=== PATIENT | female | born 1960 | race Caucasian/White ===

== ENCOUNTER 2018-06-16 11:08 | Emergency (ER) | payer MEDICAID ==
[2018-06-16 11:16] VITALS: O2SAT 98
--- NOTE | 2018-06-16 12:19 | C.PDOC ---
History Of Present Illness 57 y/o female,w/PMhx of anxiety, presents to the ER requesting detox from Xanax. Patient states that she last used Xanax in the morning. She notes that she does not have her meds because the meds are locked in her father's house. Pt reports that she also drinks ETOH. Her last drink was 2 days ago.Denies having SI, HI, and physical complaints. Time Seen by Provider: 06/16/18 11:24 Chief Complaint (Nursing): Substance Abuse History Per: Patient History/Exam Limitations: no limitations Onset/Duration Of Symptoms: Days Current Symptoms Are (Timing): Still Present Severity: Moderate Past Medical History Reviewed: Historical Data, Nursing Documentation, Vital Signs Vital Signs: Last Vital Signs Temp 98.1 F 06/16/18 11:13 Pulse 72 06/16/18 11:13 Resp 16 06/16/18 11:13 BP 111/72 06/16/18 11:13 Pulse Ox 98 06/16/18 11:13 - Medical History PMH: Anxiety, Depression, Gall Bladder Disease Denies: Diabetes, Hepatitis, HIV, HTN, Hypercholesterolemia, Hyperthyroidism, Hypothyroidism, Seizures, Sexually Transmitted Disease Surgical History: Cholecystectomy (more than 10 yrs ago) - [facility] GROUP PSYCHOTHERAPY (07/29/17) INDIV PSYCHOTHERAPY FOR SUBSTANCE ABUSE TREATMENT, SUPPORT (07/29/17) INDIV PSYCHOTHERAPY FOR SUBSTANCE ABUSE, MOTIVATION ENHANCE (07/29/17) Family History: States: No Known Family Hx - Social History Hx Alcohol Use: Yes Hx Substance Use: No - Immunization History Hx Tetanus Toxoid Vaccination: No Hx Influenza Vaccination: No Hx Pneumococcal Vaccination: No Review Of Systems Constitutional: Negative for: Fever, Chills Psych: Negative for: Suicidal ideation Physical Exam - Physical Exam Appears: No Acute Distress Skin: Normal Color, Warm, Dry Head: Atraumatic, Normacephalic Eye(s): bilateral: Normal Inspection Nose: Normal Oral Mucosa: Moist Neck: Supple Chest: Symmetrical Cardiovascular: Rhythm Regular Respiratory: Normal Breath Sounds, No Rales, No Rhonchi, No Wheezing Gastrointestinal/Abdominal: Soft, No Tenderness, No Guarding, No Rebound Neurological/Psych: Oriented x3, Normal Speech, Normal Cognition ED Course And Treatment O2 Sat by Pulse Oximetry: 98 (RA) Pulse Ox Interpretation: Normal Medical Decision Making Medical Decision Making: pt for detox from xanax, not accepted by Dr Esquivel to detox. pt has no acute medical or psychiatric issues. will discharge. ceramic coater reviewed; pt has rx fro xanax filled in late Apr 2018 for one month. advised to f/u with her psychiatrist. Disposition - Disposition Disposition: HOME/ ROUTINE Disposition Time: 12:20 Condition: GOOD Additional Instructions: Please follow up with your psychiatrist to discuss xanax dosages as soon as possible as well as alternates to xanax. 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 - Scribe Statement The provider has reviewed the documentation as recorded by the Jazmine Silvestre Provider Attestation All medical record entries made by the Gilbertoibe were at my direction and personally dictated by me. I have reviewed the chart and agree that the record accurately reflects my personal performance of the history, physical exam, medical decision making, and the department course for this patient. I have also personally directed, reviewed, and agree with the discharge instructions and disposition.
[2018-06-16 12:31] VITALS: BP 113/73; PULSE 90; RESP 20; TEMP 97.5
== END 2018-06-16 12:29 | disposition home or self-care (01) ==
LOC: C.ER 11:08
DX: F13.20 Sedative, hypnotic or anxiolytic dependence, uncomplicated (principal)